=== PATIENT | male | born 1965 ===

== ENCOUNTER 2023-02-27 07:40 | Day surgery (SDC) | payer OTHER ==
[~2023-02-27] VITALS: Ht 170.2 cm; Wt 98.0 kg
[~2023-02-27 07:40] MED LIST: AMLODIP PO; FINASTERIDE1 MG PO; LISINOPRIL40 MG PO
[2023-02-27] MEDS ORDERED: PERCOCET 5-3251 EACH PO (14:34)
[2023-02-27] MEDS ORDERED: RECTICARE30 GM TOP (14:35)
== END 2023-02-27 15:00 | disposition home or self-care (01) ==
LOC: CIR.AMB 07:40
PROVIDERS: ATTEND Surgery
DX: D12.9 Benign neoplasm of anus and anal canal (principal); D72.822 Plasmacytosis; K61.2 Anorectal abscess; A63.0 Anogenital (venereal) warts; Z20.822 Contact with and (suspected) exposure to COVID-19; I10 Essential (primary) hypertension